=== PATIENT | female | born 1980 | race Caucasian/White ===

== ENCOUNTER 2016-09-01 11:18 | Day surgery (SDC) | payer BC ==
[~2016-09-01 11:18] MED LIST: RINGERS SOLUTION,LACTATED 1,000 ML IV PRN; ceFAZolin SODIUM 1 GM VIAL IV PRN
--- OUTSIDE RECORDS SUMMARY | 2016-09-01 11:23 | XMS REPORT | Continuity of Care Document ---
:1980 Author Organization [facility] ([facility]) Address [address] [place] [address] Phone [phone] Care Team Providers Name Role Phone [facility] [phone] Source Comments This disclosure is being made pursuant to the Care Everywhere program, applicable federal and state laws, and may not contain all informaitonavailable regarding this patient.[facility] ([facility]) Active Allergies and Adverse Reactions No Known Allergies Current Medications Prescription Sig. Disp. Refills Start Date End Date Status Take by mouth. Active multivitamin with minerals PO promethazine 25 mg Take 25 mg by mouth Active tablet every 6 hours as needed. enoxaparin inject 80 mg 30 Syringe 2 05/13/2013 Active (LOVENOX) 80 mg/0.8 subcutaneously every mL injection 12 hours. syringe Indications: DVT in oxyCODONE-acetamino Take 1-2 Tabs by 25 Tab 0 05/13/2013 Active phen 5-325 mg per mouth every 4 hours tablet as needed. Do Not exceed 4000 mg of acetaminophen per 24 hours. Indications: PAIN Active Problems Problem Noted Date Normal 05/13/2013 Overview: labs: A+, Ab neg, Hgb 11.8, Pap normal (01/21/13), rubella immune, VDRL NR, urine culture neg, HBsAg neg, HIV neg, UDS neg, GC/CT neg DVT (deep vein thrombosis) in 05/13/2013 Overview: Left femoral DVT diagnosed 05/13/2013 during contractions 05/13/2013 Social History Tobacco Use Types Packs/Day Years Used Date Never Smoker Smokeless Tobacco: Never Used Alcohol Use Drinks/Week oz/Week Comments No Last Filed Vital Signs Vital Sign Reading Time Taken Blood Pressure 124/66 05/14/2013 5:00 AM CDT Pulse 88 05/13/2013 8:23 PM CDT Temperature 37.6 C (99.7 F) 05/13/2013 8:23 PM CDT Respiratory Rate 16 05/13/2013 8:23 PM CDT Height 1.626 m (5' 4") 05/13/2013 6:40 PM CDT Weight 76.658 kg (169 lb) 05/13/2013 6:40 PM CDT Body Mass Index 28.99 05/13/2013 6:40 PM CDT Oxygen Saturation 100% 05/13/2013 6:40 PM CDT Plan of Care Health Maintenance Due Date Last Done Comments Hepatitis B Vaccine (1 of 3 - Primary Series) 1980 Tdap Vaccine 10/28/1991 Lipid Disorder Screening 1998 MMR Vaccine 1998 Td Vaccine 1998 Varicella Vaccine (1 of 2 - Adult - No Evidence of 1998 Immunity) Cervical Cancer Screening 2010 Influenza Vaccine: Seasonal (#1) 02/14/2016 Results from Last 3 Months Not on file
[2016-09-01] MEDS ORDERED: RINGERS SOLUTION,LACTATED 1,000 ML IV ONE ×2 (12:00→12:35)
[2016-09-01] MEDS ORDERED: BUPIVACAINE HCL 50 ML VIAL IJ ONE ×2 (12:45)
[2016-09-01 14:30] VITALS: BP 115/77
== END 2016-09-01 11:19 | disposition home or self-care (01) ==
LOC: AMB 11:18
PROVIDERS: ATTEND Orthopaedic Surgery
PROC: 0LB50ZZ Excision of Right Lower Arm and Wrist Tendon, Open Approach (ICD-10-PCS; principal; 2016-09-01 13:55)
DX: M67.431 Ganglion, right wrist (principal); Z87.891 Personal history of nicotine dependence; Z68.24 Body mass index [BMI] 24.0-24.9, adult